=== PATIENT | male | born 1960 | race Caucasian/White ===

== ENCOUNTER 2019-09-21 08:23 | Emergency (ER) | payer MEDICARE, OTHER ==
[2019-09-21] MEDS ORDERED: HOMATROPINE HBR 5% OPH SOLN 5 ML OD ONE (08:59)
[2019-09-21] MEDS ORDERED: KETOROLAC TROMETHAMINE 0.45% 4 DROP/0.4 ML DROPERETTE OD ONE (08:59)
[2019-09-21] MEDS ORDERED: TETRACAINE HCL 0.5% OPH SOLN 4 ML OD ONE (09:00)
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
[2019-09-21] MEDS ORDERED: ERYTHROMYCIN 0.5% OPH OINT 1 GM UNIT DOSE OD ONE (10:03)
[2019-09-21 10:30] VITALS: BP 181/112
== END 2019-09-21 10:51 | disposition home or self-care (01) ==
LOC: ER 08:23
DX: H16.001 Unspecified corneal ulcer, right eye (principal); I10 Essential (primary) hypertension; F17.210 Nicotine dependence, cigarettes, uncomplicated; F12.10 Cannabis abuse, uncomplicated; I25.2 Old myocardial infarction; Z85.47 Personal history of malignant neoplasm of testis; Z79.899 Other long term (current) drug therapy
CPT/HCPCS: 99283; A9270 ×3; J3490

== ENCOUNTER 2020-06-15 22:44 | Emergency (ER) | payer OTHER, MEDICARE ==
[2020-06-15] MEDS ORDERED: ALPRAZOLAM 0.25 MG TABLET PO ONE (23:15)
[2020-06-15 23:59] VITALS: BP 190/122
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
== END 2020-06-16 00:10 | disposition home or self-care (01) ==
LOC: ER 22:44
DX: Z04.1 Encounter for examination and observation following transport accident (principal); F41.9 Anxiety disorder, unspecified; I10 Essential (primary) hypertension; F17.200 Nicotine dependence, unspecified, uncomplicated; Z79.899 Other long term (current) drug therapy; Z85.47 Personal history of malignant neoplasm of testis
CPT/HCPCS: 99283